=== PATIENT | male | born 1990 | race Caucasian/White ===

== ENCOUNTER 2017-04-16 12:28 | Emergency (ER) | payer OTHER ==
[~2017-04-16] VITALS: Ht 185.4 cm; Wt 129.0 kg
[~2017-04-16 12:28] MED LIST: CARAFATE1 GM PO; FENOFIBRATE160 M1 PO; LIPITOR20 MG PO; LORTAB 5-325 M1 EACH PO; PROTONIX40 MG PO; ZOFRAN ODT8 MG PO
[2017-04-16 13:29] LABS: CHLORIDE 106 mEq/L (99-109); POTASSIUM 3.9 mEq/L (3.7-5.4); SODIUM 139 mEq/L (136-147)
[2017-04-16 13:32] LABS: GLUCOSE 74 mg/dL (70-99)
[2017-04-16 13:33] LABS: ANION GAP 8 MEQ/L (2-14); TOTAL BILIRUBIN 0.6 mg/dL (0.0-1.0)
[2017-04-16 13:35] LABS: ALKALINE PHOSPHATASE 42 IU/L (3-129); GFR ESTIMATE (CALCULATED) > 59 mL/min/ (58.99-99999)
[2017-04-16 13:36] LABS: UREA NITROGEN (BUN) 14 mg/dL (9-23)
[2017-04-16 13:39] LABS: LIPASE 66 U/L (1.0-51.0)
[2017-04-16 14:09] LABS: BILIRUBIN NEGATIVE; BLOOD NEGATIVE; COLOR YELLOW ((YELLOW)); GLUCOSE (STRIP) NEGATIVE; KETONES NEGATIVE; LEUKOCYTES NEGATIVE; NITRITE NEGATIVE; PROTEIN (STRIP) 30; SPECIFIC GRAVITY 1.028 (1.000-1.030); UROBILINOGEN 0.2 MG/DL (0.2-1.0)
[2017-04-16 14:16] LABS: HEMATOCRIT 51.4 % (38.0-50.0); MCH 29.9 PG (29.0-34.0); MCHC 33.7 G/DL (30.0-36.0); MCV 88.8 FL (86-99); MEAN PLAT.VOLUME 10.8 uM^3 (9.0-12.4); PLATELET COUNT 271 K/uL (156-360); RBC DIS.WIDTH-CV 12.2 % (11.8-14.6); RBC DIS.WIDTH-SD 39.8 % (39-53); RED BLOOD COUNT 5.79 M/uL (4.00-5.50); WHITE BLOOD COUNT 7.2 K/uL (4.1-10.2)
[2017-04-16 14:17] LABS: ADD MIUA? NO; UCUL ADDED? NO
[2017-04-16] MEDS ORDERED: ATORVASTATIN CA20 MG PO (15:26)
[2017-04-16] MEDS ORDERED: LEVAQUIN500 MG PO (17:31)
[2017-04-16] MEDS ORDERED: PREDNISONE20 MG PO (17:31)
[2017-04-16] MEDS ORDERED: VENTOLIN HFA18 GM IH (17:31)
[2017-04-16 17:46] VITALS: BP 132/82
== END 2017-04-16 17:47 | disposition home or self-care (01) ==
LOC: EME 12:28
PROVIDERS: Physician Assistant
DX: J18.0 Bronchopneumonia, unspecified organism (principal); N20.0 Calculus of kidney; K76.0 Fatty (change of) liver, not elsewhere classified; E78.5 Hyperlipidemia, unspecified; Z88.0 Allergy status to penicillin; Z88.1 Allergy status to other antibiotic agents; Z88.8 Allergy status to other drugs, medicaments and biological substances
CPT/HCPCS: 71020; 74176; 80053; 81003; 83690; 85027; 87502; 94640; 99281; 99284; J1885; J2930